=== PATIENT | female | born 1970 | race Caucasian/White ===

== ENCOUNTER 2024-06-27 15:44 | Outpatient (CLI) | payer OTHER, SELFPAY ==
--- NOTE | ~2024-06-27 | XR_ITS ---
Lumbosacral Spine: AP and lateral views Clinical History: Pain Findings: The normal lordotic curve is maintained. No fracture or subluxation seen. There is mild deg enerative disc narrowing at L4-L5. There is moderate to advanced facet arthropathy from L4 through S1 . The sacroiliac joints are normally outlined. Impression: Mild to moderate degenerative spondylosis overall, as detailed above. Reviewed, dictated and finalized at location . [employer] Impression: Mild to moderate degenerative spondylosis overall, as detailed above.
--- NOTE | ~2024-06-27 | XR_ITS ---
HISTORY: KNEE PAIN 25.562 COMPARISON: None TECHNIQUE: 3 views of the left knee were performed FINDINGS: No acute or subacute fracture. Medial and lateral tibiofemoral joint space narrowing is identified. Ossification of the insertion of the quadriceps tendon is present. No suprapatellar joint effusion is identified. The infrapatellar joint space is clear. IMPRESSION: Degenerative disease, without acute fracture. Reviewed, dictated and finalized at location A. [employer]
== END 2024-06-27 15:45 | disposition home or self-care (01) ==
LOC: MICIMG 15:46
PROVIDERS: Visit Provider Chiropractor
DX: M54.42 Lumbago with sciatica, left side (principal); M43.06 Spondylolysis, lumbar region
CPT/HCPCS: 72100; 73562

== ENCOUNTER 2025-05-11 17:08 | Emergency (ER) | payer OTHER, SELFPAY ==
--- NOTE | ~2025-05-11 | XR_ITS ---
EXAMINATION: XR knee RT 3V DATE: 05/12/2025 7:54 [employer] INDICATION: Postop pain TECHNIQUE: 2 views right knee FINDINGS: There is a right total knee arthroplasty in expected position. Subcutaneous gas with fluid and air in the joint and overlying skin josh are consistent with recent surgery. No evidence of periprosthetic fracture. IMPRESSION: 1. Recent right total knee arthroplasty. Reviewed, dictated and finalized at location O. [employer]
[2025-05-11 17:39] VITALS: BP 137/93; PULSE 101; RESP 20; TEMP 36.4; O2SAT 100
--- NOTE | 2025-05-11 19:25 | ED.GENADULT ---
HPI - General Adult General Chief complaint: Extremity Injury, Lower Stated complaint: increased pain, knee surgery Time Seen by Provider: 05/11/25 19:17 History of Present Illness HPI narrative: This is a 54-year-old female who presents to the emergency department progressive in consistent pain in her right knee since she had right knee replacement on May 01. She denies any new trauma no other painful joints no fevers or chills. Son multiple pain medications but also on naltrexone. She denies any fevers chills no redness. States she has appointment with her doctor on Tuesday. Related Data Home Medications ?Medication ?Instructions ?Recorded ?Confirmed ?Last Taken ?Type acetaminophen 500 mg tablet 500 mg PO ONCE 05/11/25 05/11/25 05/11/25 History (Tylenol Extra Strength) amitriptyline 75 mg tablet 75 mg PO ONCE 05/11/25 05/11/25 05/11/25 History atomoxetine 100 mg capsule 100 mg PO DAILY 05/11/25 05/11/25 05/11/25 History atomoxetine 60 mg capsule 60 mg PO DAILY 05/11/25 05/11/25 05/11/25 History atorvastatin 10 mg tablet (Lipitor) 10 mg PO DAILY 05/11/25 05/11/25 05/11/25 History bupropion HCl 300 mg 24 hr tablet, 300 mg PO DAILY 05/11/25 05/11/25 05/11/25 History extended release estradiol 1 mg tablet 1 mg PO DAILY 05/11/25 05/11/25 05/11/25 History ketorolac 10 mg tablet 10 mg PO Q6H PRN pain 05/11/25 05/11/25 05/11/25 History levothyroxine 175 mcg capsule 175 mcg PO DAILY 05/11/25 05/11/25 05/11/25 History lorazepam 0.5 mg tablet mg PO PRN anxiety 05/11/25 Unknown History losartan 50 mg tablet (Cozaar) 50 mg PO ONCE 05/11/25 05/11/25 05/11/25 History metformin 500 mg tablet 500 mg PO DAILY 05/11/25 05/11/25 05/11/25 History omeprazole 40 mg capsule,delayed 40 mg PO DAILY 05/11/25 05/11/25 05/11/25 History release pilocarpine HCl 5 mg tablet 5 mg PO ONCE 05/11/25 05/11/25 05/11/25 History (Salagen (pilocarpine)) pramipexole 1 mg tablet 1 mg PO ONCE 05/11/25 05/11/25 05/11/25 History sumatriptan succinate 50 mg tablet 50 mg PO ONCE PRN migraine headache 05/11/25 05/11/25 Unknown History trazodone 100 mg tablet 100 mg PO HS 05/11/25 05/11/25 Unknown History valacyclovir 1 gram tablet 500 mg PO DAILY 05/11/25 05/11/25 05/11/25 History (Valtrex) zolpidem 10 mg tablet (Ambien) 10 mg PO HS PRN insomnia 05/11/25 05/11/25 05/11/25 History Allergies Allergy/AdvReac Type Severity Reaction Status Date / Time prochlorperazine (From Allergy Intermediate restless Verified 05/11/25 19:29 Compazine) leg syndrome promethazine (From Phenergan) Allergy Intermediate shakes Verified 05/11/25 19:29 Sulfa (Sulfonamide Allergy Intermediate shakes Verified 05/11/25 19:29 Antibiotics) erythromycin base Allergy Unknown not to Verified 05/11/25 19:29 take with other meds Review of Systems Review of Systems: All systems reviewed & are unremarkable except as noted in HPI and below Exam Narrative: EXAMINATION OF ORGAN SYSTEMS/BODY AREAS: Constitutional: Vital signs per nursing GENERAL:No acute distress, non-toxic appearing. HEAD: Normal with no signs of head trauma. EYES: EOMI, conjunctiva normal ENT: Hearing grossly intact LUNGS: Nonlabored breathing. HEART: Regular rate and rhythm ABD: Soft, nontender to palpation EXT: The surgical scar on the right knee is clean dry and intact. There is no erythema. Patient has distal pulses that are 2+ symmetric, capsular symmetric in size. They are equally and warmth. Patient has decent range of motion. But does elicit pain. SKIN: No rashes or lesions. NEURO: Alert. No gross focal sensory or strength deficits. PSYCH: Normal affect Course Vital Signs Vital signs: Vital Signs Temperature 36.4 C 05/11/25 17:39 Pulse Rate 101 H 05/11/25 17:39 Respiratory Rate 20 05/11/25 17:39 Blood Pressure 137/93 H 05/11/25 17:39 Pulse Oximetry 100 05/11/25 17:39 Oxygen Delivery Room Air 05/11/25 17:39 Temperature 36.4 C 05/11/25 17:39 Pulse Rate 101 H 05/11/25 17:39 Respiratory Rate 20 05/11/25 17:39 Blood Pressure 137/93 H 05/11/25 17:39 Pulse Oximetry 100 05/11/25 17:39 Oxygen Delivery Room Air 05/11/25 17:39 MDM Differential Diagnosis Differential Diagnosis: 54-year-old female presents with atraumatic postop pain. Her muscle compartments are soft she has decent range of motion the surgical scar is clean dry and intact there is no evidence of infection she is without any fever. She is in significant amount of pain, suspect that this is related to her naltrexone use in addition to significant number of pain medications. Will obtain a baseline plain film, to evaluate for any structural etiologies for her knee pain will initiate a multimodal pain control plan for evaluation after workup and treatment. Results and re-evaluation Upon re-evaluation the patient's pain is improved. Clinical status is otherwise unchanged. Knee x-ray shows no evidence of osseous abnormality or failure of hardware. Distal pulses again are 2+. She has an appointment on Tuesday. Her pain is controlled. Send her home with a short course of [place] as otherwise return precautions she has felt any new or concerning symptoms. All questions answered discharged her poor baseline level Imaging Data Attestation: I personally reviewed and interpreted this imaging study as follows: My impression: Knee x-ray per my interpretation shows no obvious osseous abnormalities or failure of hardware. Discharge Plan Discharge Clinical Impression: Acute knee pain, Visit for wound check Patient Disposition: Home Condition: Stable Instructions: Antibiotic Form, Knee Pain (ED) Patient Language: Brazilian Prescriptions: New hydrocodone-acetaminophen 5-325 mg tablet 1 tablet PO Q8H PRN (Reason: pain) Qty: 14 0RF No Action ketorolac 10 mg tablet 10 mg PO Q6H PRN (Reason: pain) Patient Comments: last dose 1729 acetaminophen [Tylenol Extra Strength] 500 mg tablet 500 mg PO ONCE Patient Comments: took 3 tablet at 6pm lorazepam 0.5 mg tablet PO PRN (Reason: anxiety) Patient Comments: took years ago atomoxetine 60 mg capsule 60 mg PO DAILY levothyroxine 175 mcg capsule 175 mcg PO DAILY pilocarpine HCl [Salagen (pilocarpine)] 5 mg tablet 5 mg PO ONCE Patient Comments: takes 0.5 tablet (2.5mg) atomoxetine 100 mg capsule 100 mg PO DAILY losartan [Cozaar] 50 mg tablet 50 mg PO ONCE valacyclovir [Valtrex] 1 gram tablet 500 mg PO DAILY estradiol 1 mg tablet 1 mg PO DAILY Rx Instructions: off 1 week; repeat cycle sumatriptan succinate 50 mg tablet 50 mg PO ONCE PRN (Reason: migraine headache) metformin 500 mg tablet 500 mg PO DAILY bupropion HCl 300 mg tablet extended release 24 hr 300 mg PO DAILY atorvastatin [Lipitor] 10 mg tablet 10 mg PO DAILY amitriptyline 75 mg tablet 75 mg PO ONCE omeprazole 40 mg capsule,delayed release(DR/EC) 40 mg PO DAILY pramipexole 1 mg tablet 1 mg PO ONCE trazodone 100 mg tablet 100 mg PO HS zolpidem [Ambien] 10 mg tablet 10 mg PO HS PRN (Reason: insomnia) Follow-up/Referrals: UNKNOWN,DOCTOR [Non-Staff] Time of Disposition: 21:45
[2025-05-11] MEDS: KETOROLAC 30 MG/ML VIAL (*BKC) IM (20:12)
[2025-05-11] MEDS: HYDROcodone/acetaminophen (*CRX) 5-325 MG TABLET 1 TAB PO (20:17)
[2025-05-11 22:08] VITALS: BP 141/78; PULSE 74; RESP 18; O2SAT 98
== END 2025-05-11 22:10 | disposition home or self-care (01) ==
PROVIDERS: Emergency Provider Emergency Medicine; PCP Internal Medicine
DX: M25.561 Pain in right knee (principal); Z96.651 Presence of right artificial knee joint; Z98.890 Other specified postprocedural states
CPT/HCPCS: 73562; 96372; 99284; A9270; J1790; J1885